=== PATIENT | female | born 1975 | race African-American/Black ===

== ENCOUNTER 2022-02-10 17:08 | Emergency (ER) | payer SELFPAY ==
[~2022-02-10] VITALS: Ht 170.2 cm; Wt 87.5 kg
[2022-02-10 17:33] LABS: CLARITY,URINE HAZY (CLEAR); COLOR,URINE YELLOW (YELLOW); KETONES,URINE 2+ (NEGATIVE); LEUKOCYTE ESTERASE ,URINE MODERATE (NEGATIVE); NITRITE,URINE NEGATIVE (NEGATIVE); PROTEIN,URINE DIPSTICK 1+ (NEGATIVE); URINE UROBILINOGEN 1 mg/dL (0.2 - 1)
[2022-02-10 17:42] LABS: BACTERIA,URINE MODERATE /HPF; WBC,URINE (MAN) >50 /HPF (0-5)
[2022-02-10] MEDS ORDERED: CEFPODOXIME PR200 MG PO (17:52)
== END 2022-02-10 18:11 | disposition home or self-care (01) ==
LOC: ER 17:14
DX: R30.0 Dysuria (principal); N12 Tubulo-interstitial nephritis, not specified as acute or chronic; R11.2 Nausea with vomiting, unspecified
CPT/HCPCS: 81001; 99282